=== PATIENT | female | born 1975 | race Hispanic/Latino ===

== ENCOUNTER 2023-04-19 09:01 | Outpatient (CLI) | payer MEDICARE, MEDICAID, SELFPAY ==
--- NOTE | 2023-04-19 | EST_ITS ---
Patient Info Name: Connie Davis Age: 47 years : 1975 Gender: Female Ht: 67 in Wt: 306 lbs BSA: 2.64 m2 HR: 69 bpm BP: 125 / 82 mmHg Heart Rhythm: Sinus Rhythm Exam Date: 04/19/2023 10:10 AM Exam Location: [facility] Stress Patient Status: Outpatient Admit Date: 04/19/2023 Staff Ordering Physician: Adam, Audi Reddy MD Attending Provider: Adam, Audi Reddy MD Exercise Technologist: Mirtha Kessler, CT Nurse: Amarilys Martin APN Exam Type: CA stress nerissa w NM Study Info Indications R07.89 - Other chest pain A regadenoson stress test was performed. Summary 1. No abnormal ST/T wave changes diagnostic of ischemia with Lexiscan. 2. Occasional PVCs. 3. Please correlate with nuclear medicine images, reported separately. 4. Stress test supervised by Amarilys Martin NP. Stress test interpreted by No Correa MD. Protocol: Lexiscan Stress ECG Details Stage: REST Duration (min): 1 min : 1 sec HR (bpm): 73 SBP (mmHg): 125 DBP (mmHg): 82 Stage: REST Duration (min): 4 min : 40 sec HR (bpm): 69 SBP (mmHg): 125 DBP (mmHg): 82 Stage: STAGE 1 Duration (min): 1 min : 0 sec HR (bpm): 97 SBP (mmHg): 160 DBP (mmHg): 77 Stage: RECOVERY Duration (min): 1 min : 0 sec HR (bpm): 82 SBP (mmHg): 160 DBP (mmHg): 77 Stage: RECOVERY Duration (min): 2 min : 0 sec HR (bpm): 82 SBP (mmHg): 160 DBP (mmHg): 77 Stage: RECOVERY Duration (min): 3 min : 0 sec HR (bpm): 80 SBP (mmHg): 153 DBP (mmHg): 78 Stage: RECOVERY Duration (min): 3 min : 9 sec HR (bpm): 76 SBP (mmHg): 153 DBP (mmHg): 78 Rest HR: 69 bpm Peak HR: 97 bpm Rest Sys BP: 125 mmHg Peak Sys BP: 160 mmHg Max Pred HR: 175 bpm % Max Pred HR: 55 % Target HR: 149 bpm Max RPP: 15,520 bpm*mmHg Total Time: 1 min : 0 sec Rest Quinones BP: 82 mmHg Peak Quinones BP: 77 mmHg Total Dose: 0.4 mg Resting ECG Sinus rhythm. Stress ECG Sinus rhythm. No abnormal ST/T wave changes diagnostic of ischemia with Lexiscan. Arrhythmias Occasional PVCs. Report Signatures
--- NOTE | ~2023-04-19 | NM_ITS ---
EXAMINATION: NM nerissa stress w perfusion DATE: 04/19/2023 11:07 INDICATION: Chest pain. TECHNIQUE: Rest images were obtained following intravenous administration of 10.5 mCi Tc99m tetrofosm in (Myoview). The patient was infused intravenously with Lexiscan (regadenoson). Then, 34.3 mCi Tc99m tetrofosmin (Myoview) was administered intravenously, and supine and prone stress images were obtain ed. Data was reconstructed into short axis and horizontal and vertical long axis SPECT images. Gated SPECT images were also obtained. COMPARISON: None. FINDINGS: There is a moderate-sized, mild, fixed perfusion defect involving mid anteroseptal segment and mid to basal anterior segments of left ventricle, consistent with infarct. No reversible componen t to suggest ischemia.. There is no segmental wall motion abnormality. Left ventricular ejection fr action measures 69%. IMPRESSION: 1. Moderate-sized area of mild infarct involving mid anteroseptal segment and mid to basal anterior s egments of left ventricle. Breast attenuation artifact decreases sensitivity and specificity. 2. Normal left ventricular ejection fraction measuring 69%. Reviewed, dictated and finalized at location A. IMPRESSION: 1. Moderate-sized area of mild infarct involving mid anteroseptal segment and m id to basal anterior segments of left ventricle. Breast attenuation artifact de creases sensitivity and specificity. 2. Normal left ventricular ejection fraction measuring 69%.
== END 2023-04-19 09:02 | disposition home or self-care (01) ==
PROVIDERS: PCP Internal Medicine; Visit Provider Internal Medicine
DX: R07.9 Chest pain, unspecified (principal); R93.1 Abnormal findings on diagnostic imaging of heart and coronary circulation
CPT/HCPCS: 78452; 93017; A9502

== ENCOUNTER 2024-04-30 10:11 | Outpatient (CLI) | payer MEDICARE, SELFPAY ==
--- NOTE | ~2024-04-30 | XR_ITS ---
Right foot Technique: AP, oblique, and lateral views were obtained. Clinical History: Gout, pain Findings: No acute fracture or dislocation is seen. Osseous alignment is anatomic. Joint spaces are p reserved without erosive or degenerative change. There is prominent enthesopathic change at the Achil les tendon insertion. Impression: No acute abnormality. No distinct radiographic evidence for gouty arthritis. Reviewed, dictated and finalized at location . Impression: No acute abnormality. No distinct radiographic evidence for gouty arthritis.
== END 2024-04-30 10:12 | disposition home or self-care (01) ==
LOC: ANHIMG 10:16
PROVIDERS: PCP Internal Medicine; Visit Provider Nurse Practitioner Adult Health
DX: M79.671 Pain in right foot (principal)
CPT/HCPCS: 73630